=== PATIENT | male | born 1985 | race Two or more races ===

== ENCOUNTER 2025-04-27 22:56 | Inpatient (IN) | payer BC, SELFPAY ==
[2025-04-27 22:57] VITALS: BMI 28.0
--- NOTE | 2025-04-27 23:10 | PD.EDADULT ---
ED General RME/HPI General Chief complaint: Nausea/Vomiting/Diarrhea Stated complaint: BODYACHES, DIZZINES, N/V Time Seen by Provider: 04/27/25 22:59 Arrival date/time: 04/27/25 22:56 RME / HPI RME / HPI narrative: see MDM Related Data Previous Rx's ?Medication ?Instructions ?Recorded Hydrocodone/Acetaminophen * (NORCO 1 tab PO Q6H PRN 15 #15 tabs 11/14/16 5/325 *) Allergies Allergy/AdvReac Type Severity Reaction Status Date / Time No Known Allergies Allergy Verified 04/27/25 22:59 Review of Systems Review of Systems Systems Reviewed: All systems reviewed, normal except as documented ED Exam Narrative Physical exam: GENERAL: NAD, AAOx3 HEENT: dry mucosa. Eyes open, symmetrical, & clear CARDIO: Heart RRR, no obvious murmurs PULM: No noted coughing/dyspnea CTA B/L, no R/W/R GI: Abdomen soft, nondistended, mild pain on palpation in right lower quadrant. BSx4 SKIN/MSK/EXT: No wounds/rashes/edema/amputations, no pain on palpation. Pedal pulses present B/L NEURO: AAOx3, no focal neuro deficits, able to move all 4 extremities Course Quality Measures none Orders Category Date Time Status EKG (ED ONLY) *Do not use* NOW Care 04/27/25 23:43 Completed Insert IV NOW Care 04/27/25 23:41 Active CXRP [XR chest 1V portable] Stat Exams 04/27/25 23:47 Taken EKG (ED Only) Stat Exams 04/27/25 23:43 Draft A1C [Glycohemoglobin w (eAG)] Stat Lab 04/27/25 23:43 Received Beta Hydroxybutyrate Stat Lab 04/27/25 23:42 Completed CBC Stat Lab 04/27/25 23:42 Completed CMP [Comprehensive Metabolic Panel] Stat Lab 04/27/25 23:42 Completed Lactic Acid [Lactate (Lactic Acid)] Stat Lab 04/27/25 23:46 Results UA [Urinalysis] Stat Lab 04/27/25 23:58 Completed VBG [Venous Blood Gas] Stat Lab 04/27/25 23:42 Completed Ringers Lactated 1000 ml [Lactated Ringers] 1,000 ml Med 04/28/25 01:30 Discontinued IV 999 mls/hr Sodium Chloride 0.9% 1000 ml [Ns] 1,000 ml Med 04/28/25 00:04 Discontinued IV 999 mls/hr Vital Signs Vital signs: Vital Signs Temperature 99.1 F 04/27/25 23:15 Pulse Rate 116 H 04/27/25 23:15 Respiratory Rate 16 04/27/25 23:15 Blood Pressure 141/104 H 04/27/25 23:15 Pulse Oximetry (%) 97 04/27/25 23:15 Oxygen Delivery Method Room Air 04/27/25 23:15 Discharge Plan Plan Patient Disposition: Admit Acute Care w/in Hospital Problem List Clinical Impression: DKA (diabetic ketoacidosis) MDM Narrative MDM hospital course: 39 y/o M with no pmhx who presented to the ED due to vomiting. He describes 2 episodes of vomiting mostly food contents. Patient states that he went to a clinic and found that his blood sugars were in the high 300s and urinalysis showing glucose and ketones but has not had a formal diagnosis of diabetes. He states that he has been feeling weak with nausea and vomiting for the last week as well as some mild abdominal pain rated 2-4 out of 10. He does state that his mother is a type I diabetic. He also states that he is currently unable to hold anything down since this am where he tried to eat breakfast and then started vomiting. At this time he denies fever chills, shortness of breath, chest pain, palpitations recent travel, sick contacts. 2346 CBC, CMP, VBG, BHB, lactic acid ordered 0003 Labs reviewed had lactic acid elevated, anion gap open, blood sugars in the 380s, BHB 5.3 As patient has new onset diabetes likely in DKA considering his nausea vomiting abdominal pain unable to tolerate p.o. intake, high blood sugars and increased anion gap 0140 Spoke to ICU team who will accept the patient for admission Clinical Information Provided by patient Medical Records Reviewed None Lab Interpretation Labs: interpreted by me Lab(s) interpretation(s): Diabetic ketoacidosis, lactic acidosis, elevated beta hydroxybutyrate Medication Administration(s) Medication Administration History Dextrose (Dextrose 50%-Water Inj 50 Ml Syringe) 25 ml IV PRNMRX1 PRN PRN Reason: Blood Sugar - Low Enoxaparin Sodium (Enoxaparin Sod Inj 40 Mg/0.4 Ml Syringe) 40 mg SC QDAY JAYNE Stop: 05/12/25 08:59 Lactated Ringer's (Lactated Ringers) 1,000 mls @ 999 mls/hr IV .Q1H1M ONE Stop: 04/28/25 02:51 Last Admin: 04/28/25 02:20 Dose: 999 mls/hr Documented By: DT Lactated Ringer's (Lactated Ringers) 1,000 mls @ 999 mls/hr IV .Q1H1M ONE Stop: 04/28/25 02:52 Last Admin: 04/28/25 02:21 Dose: 999 mls/hr Documented By: DT Potassium Chloride (Kcl Ivpb) 10 meq in 100 mls @ 100 mls/hr IV .Q1H PRN PRN Reason: IF POTASSIUM LESS THAN 3.3 Stop: 05/28/25 01:51 Magnesium Sulfate (Magnesium Sulfate Ivpb) 2 gm in 50 mls @ 25 mls/hr IV .Q2H PRN PRN Reason: PER DKA PROTOCOL Stop: 05/28/25 01:51 Insulin Human Regular 100 unit (/ IV Miscellaneous Supplies) 100 mls @ 8.618 mls/hr IV .[id number] PRN; Protocol PRN Reason: PER PROTOCOL Stop: 05/28/25 01:51 Dextrose/Lactated Ringer's (D5-Lr) 1,000 mls @ 250 mls/hr IV .Q4H PRN PRN Reason: PER PROTOCOL Stop: 05/28/25 01:51 Lactated Ringer's (Lactated Ringers) 1,000 mls @ 250 mls/hr IV .Q4H PRN PRN Reason: PER PROTOCOL Stop: 04/29/25 01:51 Last Admin: 04/28/25 02:34 Dose: 250 mls/hr Documented By: DT Potassium Chloride 20 meq/ (Lactated Ringer's) 1,010 mls @ 250 mls/hr IV .Q4H3M PRN PRN Reason: K LEVEL 3.3 TO 5.3mM/L Stop: 05/28/25 01:51 Potassium Chloride 40 meq/ (Lactated Ringer's) 1,020 mls @ 250 mls/hr IV .Q4H5M PRN PRN Reason: K LEVEL < 3.3 mM/L Stop: 05/28/25 01:51 Potassium Chloride 40 meq/ (Dextrose/Lactated Ringer's) 1,020 mls @ 250 mls/hr IV .Q4H5M PRN PRN Reason: K LEVEL < 3.3mM/L Stop: 05/28/25 01:51 Potassium Cl/Dextrose/Lact Ringer's (Kcl 20 Meq/L In D5-Lr) 20 meq in 1,000 mls @ 250 mls/hr IV .Q4H PRN PRN Reason: K LEVEL 3.3 TO 5.3 mM/L Stop: 05/28/25 01:51 Potassium Chloride (Kcl Ivpb) 10 meq in 100 mls @ 50 mls/hr IV PRN PRN PRN Reason: K LEVEL 3.3 to 5.3 & BG > 200 Stop: 05/28/25 01:51 Last Admin: 04/28/25 02:34 Dose: 50 mls/hr Documented By: ANEL Potassium Phosphate (Pot Phos 15 Mmol In Ns 250 Ml) 15 mmol in 250 mls @ 62.5 mls/hr IV PRN PRN PRN Reason: Phosphate <= 1mg/dL Stop: 05/28/25 01:51 Sodium Phosphate 15 mmol/ (Sodium Chloride) 255 mls @ 62.5 mls/hr IV .Q4H5M PRN PRN Reason: Phosphate <= 1mg/dL and K> than 5.3 Stop: 05/28/25 01:51 Sodium Bicarbonate (Sodium Bicarb Inj 8.4% Syr 50 Ml Syringe) 50 ml IV Q4HR PRN PRN Reason: For ph <= to 7.0 Stop: 05/28/25 01:51 Discontinued Medications Sodium Chloride (Ns) 1,000 mls @ 999 mls/hr IV .Q1H1M ONE Stop: 04/28/25 01:04 Last Infusion: 04/28/25 01:17 Dose: Infused Documented By: Admin: 04/28/25 00:11 Dose: 999 mls/hr Documented By: ANEL Lactated Ringer's (Lactated Ringers) 1,000 mls @ 999 mls/hr IV .Q1H1M ONE Stop: 04/28/25 02:30 Last Admin: 04/28/25 01:40 Dose: 999 mls/hr Documented By: JENNIFER Diagnosis Differential diagnosis: Diabetic ketoacidosis, lactic acidosis, sepsis Most likely dx, and/or detailed dx discussion: Diabetic ketoacidosis Dispositon Disposition: Admit
[2025-04-27 23:15] VITALS: BP 140/111; BP 141/104; PULSE 116; RESP 16; TEMP 37.3; O2SAT 97
--- NOTE | 2025-04-27 23:43 | EKG_ITS ---
[facility] Test Date: 2025-04-27 Pat Name: MAURICE GU Department: Room: - Gender: Male [employer] Teacher: : 1985 Requested By: Arturo García Order Number: [id number] Reading MD: Arturo García Measurements Intervals Vest Rate: 111 P: 44 ND: 112 QRS: 15 QRSD: 86 T: 64 QT: 311 QTc: 424 Interpretive Statements SINUS TACHYCARDIA WITH SHORT ND INTERVAL NONSPECIFIC T-WAVE ABNORMALITY ABNORMAL RHYTHM ECG No previous ECG available for comparison /store/S0/[id number]/ecg/[id number].pdf
--- NOTE | 2025-04-27 23:47 | XR_ITS ---
Examination: AP chest single view Technique one AP portable upright chest single view. Date and time: April 28, 2025, 0007 hours INDICATION: Chest pain today. FINDINGS: Normal heart size. The lungs are clear. The osseous structures are intact. IMPRESSION: No active disease.
[2025-04-28] VITALS (18 sets, daily range): BP systolic 113–150; BP diastolic 79–109; PULSE 67–110; RESP 12–23; TEMP 36.2–37.1; O2SAT 96–100; BMI 29.5
[2025-04-28 00:02] LABS: Collection Type, Urine Clean Catch; Squamous Epithelial Cell,Urine 0 /hpf (0-5)
[2025-04-28 00:10] LABS: Bilirubin,Urine Negative (Negative); Blood,Urine Negative (Negative); Clarity,Urine Clear (Clear/Hazy); Color,Urine Lt-Yellow (Lt Yel-Yel); Glucose, Urine 4+ (Negative); Hyaline Casts,Urine 3 /hpf (0-1); Ketones,Urine 4+ (Negative); Leukocyte Esterase,Urine Negative (Negative); Nitrite,Urine Negative (Negative); PH,Urine 5.5 (5.0-7.0); Protein,Urine 1+ (Neg - Trace); RBC,Urine 2 /hpf (0-3); Specific Gravity,Urine 1.036 (1.001-1.035); Urobilinogen,Urine 2.0 mg/dL (0.0-1.0); WBC,Urine 2 /hpf (0-5)
[2025-04-28] MEDS: SODIUM CHLORIDE 0.9% 1000 ML 1,000 ML 999 ML IV (00:11)
[2025-04-28 00:15] LABS: Lactate (Lactic Acid) 2.2 mMol/L (0.4-2.0)
[2025-04-28 00:16] LABS: Base Excess, Venous -10 (-3-3); O2 Saturation, Venous 88 % (96-97); PCO2, Venous 33 mmHg (36-56); PO2, Venous 55 mmHg (15-58); pH, Venous 7.29 (7.33-7.66)
[2025-04-28 00:17] LABS: Basophils # (Auto) 0.1 Thou/mm3 (0.0-0.2); Basophils % (Auto) 1 % (0-2.5); Eosinophils # (Auto) 0.1 Thou/mm3 (0.0-0.5); Eosinophils % (Auto) 1 % (0-10); Hematocrit 45.9 % (41.0-53.0); Hemoglobin 16.3 g/dL (13.5-16.0); Immature Granulocytes Auto 0.05 Thou/mm3 (0.00-0.00); Lymphocytes # (Auto) 2.3 Thou/mm3 (1.0-4.8); Lymphocytes % (Auto) 25 % (10-50); Mean Corpuscular HGB Conc 35.5 g/dl (31.0-37.0); Mean Corpuscular Hemoglobin 31.0 pg (25.0-35.0); Mean Corpuscular Volume 87 fL (80-100); Monocytes # (Auto) 0.7 Thou/mm3 (0.0-0.8); Monocytes % (Auto) 7 % (0-12); Neutrophils # (Auto) 6.0 Thou/mm3 (1.8-7.7); Neutrophils % (Auto) 65 % (37-80); Nucleated Red Blood Cell # 0.00 Thou/mm3 (0.00-0.00); Nucleated Red Blood Cell % 0 /100 WBC (0); Platelet Count 229 Thou/mm3 (140-440); RDW Standard Deviation 37.3 fL (35.1-43.9); Red Blood Count 5.26 Miln/mm3 (4.50-5.90); White Blood Count 9.2 Thou/mm3 (3.8-10.6)
[2025-04-28 00:29] LABS: Beta Hydroxybutyrate 5.3 mmol/L (<0.6)
[2025-04-28 01:25] LABS: Alanine Aminotransferase 74 U/L (10-49); Albumin, Serum 4.7 gm/dL (3.5-5.0); Albumin/Globulin Ratio 1.7 (1.2-2.2); Alkaline Phosphatase 95 U/L (46-116); Anion Gap 21 (7-16); Aspartate Amino Transferase 36 U/L (0-34); BUN/Creatinine Ratio 13 Ratio (12-20); Bilirubin,Total 0.5 mg/dL (0.3-1.2); Blood Urea Nitrogen 19 mg/dL (9-23); Calcium 9.8 mg/dL (8.3-10.6); Calcium (Corrected) 9.8 mg/dL (8.5-10.1); Chloride 98 mMol/L (98-107); Creatinine (Component) 1.5 mg/dL (0.6-1.3); Estimated Creatinine Clearance 70.5 mL/min (>60); Globulin 2.8 gm/dL (2.3-3.5); Glucose 391 mg/dL (74-106); Osmolality,Calculated 284 (275-295); Potassium 4.0 mMol/L (3.4-5.1); Sodium 133 mMol/L (136-145); Total Protein 7.5 gm/dL (5.7-8.2); eGFR 60 See Note
[2025-04-28 01:29] LABS: Carbon Dioxide 14.4 mMol/L (20.0-31.0)
[2025-04-28] MEDS: RINGERS LACTATED 1000 ML 1,000 ML 999 ML IV ×3 (01:40→02:21)
[2025-04-28 02:29] LABS: Magnesium 1.9 mg/dL (1.6-2.6); Phosphorous 4.7 mg/dL (2.4-5.1)
[2025-04-28] MEDS: RINGERS LACTATED 1000 ML 1,000 ML 250 ML IV (02:34)
[2025-04-28] MEDS: POTASSIUM CHL 10 mEq IVPB 10 MEQ/100 ML BAG 50 MEQ IV ×3 (02:34→06:28)
[2025-04-28] MEDS: INSULIN REG 100 UNITS/100 ML 100 UNIT in PRE-MIXED 1 BAG 8.618 UNIT IV (02:39)
[2025-04-28 03:09] LABS: Reflex Lactate? Y
[2025-04-28 03:12] LABS: Lactic Acid, 3 HR 2.0 mMol/L (0.4-2.0)
[2025-04-28 03:47] LABS: Glucose Estimated Average 272 mg/dL (80-131); Hemoglobin A1C 11.1 % Hgb (4.8-6.0)
[2025-04-28] MEDS: DEXTROSE 5%-LACTATED RINGERS 1,000 ML 250 ML IV (04:50)
--- NOTE | 2025-04-28 04:54 | ESHP_ITS ---
<Statement entered by Jeffrey Bruno MD - 04/28/25 06:55> I Jeffrey Bruno MD reviewed the note and agree with the resident's assessment & plan with exceptions as below. I have personally reviewed labs, imaging, home meds/prior records, examined the patient, formulated and discussed management plan with the IM team. A 39-year-old male with recent diagnosis of diabetes mellitus presented to ED with generalized fatigue, tiredness and overall not feeling well noted to be in DKA along with LOPEZ. Received initial IV fluid resuscitation in the ED, administer NS 2 L bolus followed by maintenance IVF with NS at 150 mL an hour. Started on insulin gtt. as per DKA protocol with renal panel and electrolyte replacement. Will start on p.o. diet once the gap closes and will switch to basal and preprandial insulin. Documentation for date of: 04/28/25 HPI History of Present Illness Chief complaint: nausea and vomiting History of present illness: Patient is 39 years old male with past medical history of hypertension and recently diagnosed type 2 diabetes mellitus presented to the ED complaining of nausea and vomiting. He reports he was seen in outpatient clinic yesterday and was started on metformin twice daily for newly diagnosed type 2 diabetes mellitus. He reported that for the last week he was feeling nauseous and was not feeling well. Today patient woke up and started vomiting after breakfast prompting him coming to the ED. He denies any fever, chills, chest pain, abdominal pain. He also denies any diarrhea or constipations. He is taking amlodipine for hypertension. In the ED on admission blood pressure 141/104, pulse 116, respirations 16, temperature 99.1 ?F, oxygen saturation 97% on room air. Labs showed hemoglobin 16.3, sodium 133, potassium 4, carbon dioxide 14.4, anion gap 21, creatinine 1.5, glucose 391, hemoglobin A1c 11.1%, lactic acid 2.2, AST 36, ALT 74, BHB 5.3. Urinalysis showed 4+ urine and ketones and 1+ protein. VBG showed pH 7.29, PCO2 33, PO2 55. EKG showed sinus tachycardia. Chest x-ray was unremarkable. He was given 2 L of IVF in the ED and was admitted to ICU for management of DKA. PMH: hypertension and recently diagnosed type 2 diabetes mellitus. PSH: Hand surgery. SH: Drinks alcohol 3 times a week 6-12 beers at the time. Uses cocaine 2 times a week. Denies smoking tobacco or using other illicit drugs. FH: Mother and father have diabetes type 1. Allergies: NKA. Medications: Metformin, amlodipine. Review of Systems Review of Systems Systems Reviewed: All systems reviewed, normal except as documented Exam Vital Signs Temp Pulse Resp BP Pulse Ox O2 Del Method 98.6 F 76 20 141/109 H 100 Room Air 04/28/25 02:00 04/28/25 02:00 04/28/25 02:00 04/28/25 02:00 04/28/25 02:00 04/28/25 02:00 Narrative Exam Gen: Well-developed and well-nourished. HEENT: NCAT, PERRLA, EOMI, MMM, anicteric conjunctivae. CVS: normal S1 and S2. RRR. No M/R/G. Resp: CTA B/L. No rhonchi, rales, crackles or wheezing. Abd: soft, non-tender, non-distended. BS+ in all 4 quadrants. MSK: Good ROM in BUE & BLE. No edema or rash. Neuro: CN II-XII grossly intact. Strength 5/5 in BUE & BLE. Alert and oriented x3. Psych: appropriate mood and affect. Results: Labs 04/28/25 00:03 04/28/25 00:03 Labs: Short CBC 04/28/25 Range/Units 00:03 WBC 9.2 (3.8-10.6) Thou/mm3 Hgb 16.3 H (13.5-16.0) g/dL Hct 45.9 (41.0-53.0) % Plt Count 229 (140-440) Thou/mm3 BMP 04/28/25 00:03 Sodium 133 L Potassium 4.0 Chloride 98 Carbon Dioxide 14.4 L* BUN 19 Creatinine 1.5 H Glucose 391 H Calcium 9.8 Liver Function 04/28/25 Range/Units 00:03 Total Bilirubin 0.5 (0.3-1.2) mg/dL AST 36 H (0-34) U/L ALT 74 H (10-49) U/L Alkaline Phosphatase 95 (46-116) U/L Albumin 4.7 (3.5-5.0) gm/dL Urine 04/27/25 Range/Units 23:58 Urine Color Lt-Yellow (Lt Yel-Yel) Urine Clarity Clear (Clear/Hazy) Urine pH 5.5 (5.0-7.0) Ur Specific [place] 1.036 H (1.001-1.035) Urine Protein 1+ A (Neg - Trace) Urine Glucose (UA) 4+ A (Negative) ABG Interpretation ABG results: 04/28/25 00:03 VBG pH 7.29 L VBG pCO2 33 L VBG pO2 55 VBG Base Excess -10 L Quality Measures Quality Measures VTE prophylaxis Medications Home Medications and Allergies Allergies Allergy/AdvReac Type Severity Reaction Status Date / Time No Known Allergies Allergy Verified 04/27/25 22:59 Visit Medications Dextrose (Dextrose 50%-Water Inj 50 Ml Syringe) 25 ml IV PRNMRX1 PRN PRN Reason: Blood Sugar - Low Enoxaparin Sodium (Enoxaparin Sod Inj 40 Mg/0.4 Ml Syringe) 40 mg SC QDAY [facility] Stop: 05/12/25 08:59 Potassium Chloride (Kcl Ivpb) 10 meq in 100 mls @ 100 mls/hr IV .Q1H PRN PRN Reason: IF POTASSIUM LESS THAN 3.3 Stop: 05/28/25 01:51 Magnesium Sulfate (Magnesium Sulfate Ivpb) 2 gm in 50 mls @ 25 mls/hr IV .Q2H PRN PRN Reason: PER DKA PROTOCOL Stop: 05/28/25 01:51 Insulin Human Regular 100 unit (/ IV Miscellaneous Supplies) 100 mls @ 8.618 mls/hr IV .[id number] PRN; Protocol PRN Reason: PER PROTOCOL Stop: 05/28/25 01:51 Last Titration: 04/28/25 03:44 Dose: 0.1 unit/kg/hr, 8.6 mls/hr Dextrose/Lactated Ringer's (D5-Lr) 1,000 mls @ 250 mls/hr IV .Q4H PRN PRN Reason: PER PROTOCOL Stop: 05/28/25 01:51 Lactated Ringer's (Lactated Ringers) 1,000 mls @ 250 mls/hr IV .Q4H PRN PRN Reason: PER PROTOCOL Stop: 04/29/25 01:51 Last Admin: 04/28/25 02:34 Dose: 250 mls/hr Potassium Chloride 20 meq/ (Lactated Ringer's) 1,010 mls @ 250 mls/hr IV .Q4H3M PRN PRN Reason: K LEVEL 3.3 TO 5.3mM/L Stop: 05/28/25 01:51 Potassium Chloride 40 meq/ (Lactated Ringer's) 1,020 mls @ 250 mls/hr IV .Q4H5M PRN PRN Reason: K LEVEL < 3.3 mM/L Stop: 05/28/25 01:51 Potassium Chloride 40 meq/ (Dextrose/Lactated Ringer's) 1,020 mls @ 250 mls/hr IV .Q4H5M PRN PRN Reason: K LEVEL < 3.3mM/L Stop: 05/28/25 01:51 Potassium Cl/Dextrose/Lact Ringer's (Kcl 20 Meq/L In D5-Lr) 20 meq in 1,000 mls @ 250 mls/hr IV .Q4H PRN PRN Reason: K LEVEL 3.3 TO 5.3 mM/L Stop: 05/28/25 01:51 Potassium Chloride (Kcl Ivpb) 10 meq in 100 mls @ 50 mls/hr IV PRN PRN PRN Reason: K LEVEL 3.3 to 5.3 & BG > 200 Stop: 05/28/25 01:51 Last Admin: 04/28/25 04:38 Dose: 50 mls/hr Potassium Phosphate (Pot Phos 15 Mmol In Ns 250 Ml) 15 mmol in 250 mls @ 62.5 mls/hr IV PRN PRN PRN Reason: Phosphate <= 1mg/dL Stop: 05/28/25 01:51 Sodium Phosphate 15 mmol/ (Sodium Chloride) 255 mls @ 62.5 mls/hr IV .Q4H5M PRN PRN Reason: Phosphate <= 1mg/dL and K> than 5.3 Stop: 05/28/25 01:51 Sodium Bicarbonate (Sodium Bicarb Inj 8.4% Syr 50 Ml Syringe) 50 ml IV Q4HR PRN PRN Reason: For ph <= to 7.0 Stop: 05/28/25 01:51 Discontinued Medications Sodium Chloride (Ns) 1,000 mls @ 999 mls/hr IV .Q1H1M ONE Stop: 04/28/25 01:04 Last Infusion: 04/28/25 01:17 Dose: Infused Lactated Ringer's (Lactated Ringers) 1,000 mls @ 999 mls/hr IV .Q1H1M ONE Stop: 04/28/25 02:30 Last Infusion: 04/28/25 02:52 Dose: Infused Lactated Ringer's (Lactated Ringers) 1,000 mls @ 999 mls/hr IV .Q1H1M ONE Stop: 04/28/25 02:51 Last Infusion: 04/28/25 03:30 Dose: Infused Lactated Ringer's (Lactated Ringers) 1,000 mls @ 999 mls/hr IV .Q1H1M ONE Stop: 04/28/25 02:52 Last Infusion: 04/28/25 03:30 Dose: Infused Assessment & Plan Plan Patient is 39 years old male with past medical history of hypertension and recently diagnosed type 2 diabetes mellitus presented to the ED complaining of nausea and vomiting and was admitted to ICU for management of DKA. Neuro: No active problem. Cardiovascular: #History of hypertension. Resume home amlodipine once p.o. Respiratory: No active problem. Gastrointestinal: #Nausea and vomiting, resolved. Likely due to DKA, resolved at the time of admission. Renal: #HAGMA. #Lactic acidosis. #LOPEZ. Labs showed carbon dioxide 14.4, anion gap 21, creatinine 1.5, hemoglobin A1c 11.1%, lactic acid 2.2, BHB 5.3. Baseline creatinine around 1. Patient was given 2 L of IVF in the ED. Lactic acidosis due to severe dehydration vs recently started metformin. VBG showed pH 7.29, PCO2 33, PO2 55. Plan: - Given additional 2 L of LR. - Continue DKA protocol with fluid resuscitation. - Strict DORIE. - Avoid nephrotoxic agents. Endocrine: #DKA. #Newly diagnosed type 2 diabetes mellitus. Patient was diagnosed with type 2 diabetes mellitus day prior to admission, was started on metformin twice daily. Labs showed anion gap 21, hemoglobin A1c 11.1%, BHB 5.3. Plan: - Patient started on DKA protocol with insulin drip and IVF. - Replete electrolytes per DKA protocol. Infectious Disease: No active problem. Hematology/Oncology: No active problem. Diet: NPO. DVT prophylaxis: Lovenox. GI prophylaxis: None. Code status: Full code. Disposition: ICU for DKA. Plan of care discussed with attending Dr. Bruno. Arthur Luna MD, PGY 3. Disclaimer: This note was dictated by speech recognition. Minor errors in lease purchase driver may be present due to voice recognition software.
[2025-04-28 06:40] LABS: Lactate (Lactic Acid) 1.2 mMol/L (0.4-2.0)
[2025-04-28 06:44] LABS: Basophils # (Auto) 0.1 Thou/mm3 (0.0-0.2); Basophils % (Auto) 1 % (0-2.5); Eosinophils # (Auto) 0.1 Thou/mm3 (0.0-0.5); Eosinophils % (Auto) 2 % (0-10); Hematocrit 36.7 % (41.0-53.0); Hemoglobin 13.0 g/dL (13.5-16.0); Immature Granulocytes Auto 0.04 Thou/mm3 (0.00-0.00); Lymphocytes # (Auto) 2.8 Thou/mm3 (1.0-4.8); Lymphocytes % (Auto) 34 % (10-50); Mean Corpuscular HGB Conc 35.4 g/dl (31.0-37.0); Mean Corpuscular Hemoglobin 31.0 pg (25.0-35.0); Mean Corpuscular Volume 88 fL (80-100); Monocytes # (Auto) 0.7 Thou/mm3 (0.0-0.8); Monocytes % (Auto) 9 % (0-12); Neutrophils # (Auto) 4.5 Thou/mm3 (1.8-7.7); Neutrophils % (Auto) 55 % (37-80); Nucleated Red Blood Cell # 0.00 Thou/mm3 (0.00-0.00); Nucleated Red Blood Cell % 0 /100 WBC (0); Platelet Count 166 Thou/mm3 (140-440); RDW Standard Deviation 37.2 fL (35.1-43.9); Red Blood Count 4.19 Miln/mm3 (4.50-5.90); White Blood Count 8.2 Thou/mm3 (3.8-10.6)
[2025-04-28 07:18] LABS: Alanine Aminotransferase 49 U/L (10-49); Albumin, Serum 3.4 gm/dL (3.5-5.0); Albumin/Globulin Ratio 1.6 (1.2-2.2); Alkaline Phosphatase 63 U/L (46-116); Anion Gap 10 (7-16); Aspartate Amino Transferase 23 U/L (0-34); BUN/Creatinine Ratio 12 Ratio (12-20); Bilirubin,Total 0.5 mg/dL (0.3-1.2); Blood Urea Nitrogen 12 mg/dL (9-23); Calcium 8.4 mg/dL (8.3-10.6); Calcium (Corrected) 8.9 mg/dL (8.5-10.1); Carbon Dioxide 19.3 mMol/L (20.0-31.0); Cardiac Risk Estimate 6.7 RATIO (4.0-6.7); Chloride 106 mMol/L (98-107); Cholesterol 220 mg/dL (132-200); Creatinine (Component) 1.0 mg/dL (0.6-1.3); Estimated Creatinine Clearance 108.1 mL/min (>60); Globulin 2.1 gm/dL (2.3-3.5); Glucose 173 mg/dL (74-106); HDL Cholesterol 33 mg/dL (40-60); LDL Cholesterol,Calculated 163 mg/dL (0-130); Magnesium 1.6 mg/dL (1.6-2.6); Osmolality,Calculated 273 (275-295); Phosphorous 2.9 mg/dL (2.4-5.1); Potassium 3.4 mMol/L (3.4-5.1); Sodium 135 mMol/L (136-145); Total Protein 5.5 gm/dL (5.7-8.2); Triglycerides 122 mg/dL (30-150); eGFR > 60 See Note
[2025-04-28] MEDS: ENOXAPARIN SOD INJ 40 MG/0.4 ML SYRINGE SC (09:05)
[2025-04-28] MEDS: KCL 20 mEq/L in D5-LR 20 MEQ/1,000 ML BAG 250 MEQ IV (09:05)
[2025-04-28 10:37] LABS: Lactate (Lactic Acid) 1.4 mMol/L (0.4-2.0)
[2025-04-28 11:01] LABS: Albumin, Serum 3.4 gm/dL (3.5-5.0); Anion Gap 9 (7-16); BUN/Creatinine Ratio 11 Ratio (12-20); Blood Urea Nitrogen 10 mg/dL (9-23); Calcium 8.2 mg/dL (8.3-10.6); Calcium (Corrected) 8.7 mg/dL (8.5-10.1); Carbon Dioxide 23.4 mMol/L (20.0-31.0); Chloride 105 mMol/L (98-107); Creatinine (Component) 0.9 mg/dL (0.6-1.3); Estimated Creatinine Clearance 118.0 mL/min (>60); Glucose 154 mg/dL (74-106); Magnesium 1.6 mg/dL (1.6-2.6); Osmolality,Calculated 275 (275-295); Phosphorous 3.4 mg/dL (2.4-5.1); Potassium 3.2 mMol/L (3.4-5.1); Sodium 137 mMol/L (136-145); eGFR > 60 See Note
[2025-04-28] MEDS: INSULIN GLARGINE (Lantus) 5 UNIT/0.05 ML (PER 5 UNITS) 25 UNIT SC (12:00)
--- NOTE | 2025-04-28 12:58 | ESPR_ITS ---
<Statement entered by Sabine Conde MD - 04/29/25 16:16> Patient was seen and examined at bedside. I agree on the assessment and plan on this note. At this time we are not sure of type of his diabetes. will require insulin, C-peptide evaluation as an outpatient. Patient has hypertension, HLD, BMI of 29, and new diagnosis of DM which put him at risk for cardiovascular complications. He has strong family hx of DM in both parents. At this time patient will be downgraded to the floor team for further management. - Patient's plan and care discussed with my attending, Dr. Jeffery Conde MD Internal Medicine PGY-3 <Statement entered by Adolfo Marina MD - 04/28/25 17:45> Patient was seen and examined at bedside. I agree on the assessment and plan on this note as documented by resident Bronson Elizabeth PGY1. Mr Krishnan is a 39-year-old male with past medical history of hypertension, patient was recently diagnosed with diabetes outpatient by primary care physician was started on metformin. After initiation of therapy patient presented to the ED with a chief complaint of nausea and vomiting in the ED patient was noted to have elevated anion gap, elevated beta hydroxybutyrate and patient was admitted to the ICU for management of diabetic ketoacidosis. Patient started on DKA protocol, in the morning patient's anion gap improved, closed x 2. Patient alert and oriented x 3 on bedside examination, patient started on diet, tolerated diet well. Patient's was given 25 units of Lantus subcutaneous x 1 insulin drip discontinued after, patient started on 6 units of lispro 3 times daily along with sliding scale for correction. Patient noted to have significant hyperlipidemia and hypercholesterolemia, started on atorvastatin 40 mg at bedtime, also noted mild transaminitis on presentation, per chart review patient did have transaminitis in the past as well, we will obtain hepatitis panel however there is high suspicion of underlying MASLD. Of note patient has history of cocaine use, referral made to social work assistant. Patient stable to be downgraded to med/tele signout given to the hospitalist team. Hospitalist team to resume care. Case discussed with attending Dr. Gil and senior Resident Dr Conde PGY3 Adolfo Marina MD PGY-2 Documentation for date of: 04/28/25 Subjective Subjective Interval history: Chief complaint: nausea and vomiting History of present illness: Patient is 39 years old male with past medical history of hypertension and recently diagnosed type 2 diabetes mellitus presented to the ED complaining of nausea and vomiting. He reports he was seen in outpatient clinic yesterday and was started on metformin twice daily for newly diagnosed type 2 diabetes mellitus. He reported that for the last week he was feeling nauseous and was not feeling well. Today patient woke up and started vomiting after breakfast prompting him coming to the ED. He denies any fever, chills, chest pain, abdominal pain. He also denies any diarrhea or constipations. He is taking amlodipine for hypertension. In the ED on admission blood pressure 141/104, pulse 116, respirations 16, temperature 99.1 ?F, oxygen saturation 97% on room air. Labs showed hemoglobin 16.3, sodium 133, potassium 4, carbon dioxide 14.4, anion gap 21, creatinine 1.5, glucose 391, hemoglobin A1c 11.1%, lactic acid 2.2, AST 36, ALT 74, BHB 5.3. Urinalysis showed 4+ urine and ketones and 1+ protein. VBG showed pH 7.29, PCO2 33, PO2 55. EKG showed sinus tachycardia. Chest x-ray was unremarkable. He was given 2 L of IVF in the ED and was admitted to ICU for management of DKA. PMH: hypertension and recently diagnosed type 2 diabetes mellitus. PSH: Hand surgery. SH: Drinks alcohol 3 times a week 6-12 beers at the time. Uses cocaine 2 times a week. Denies smoking tobacco or using other illicit drugs. FH: Mother and father have diabetes type 1. Allergies: NKA. Medications: Metformin, amlodipine. 04/28/2025 Patient seen and examined at bedside, admitted overnight for DKA. He is alert and oriented x 3. Discussed with the patient his new diagnosis of type 2 diabetes, was recently diagnosed by primary care physician and started on metformin. Discussed the patient's family history of type 1 diabetes in his mother and father. Patient's nausea and vomiting has resolved, currently has no complaints. The patient's anion gap metabolic acidosis has improved from 21 to 10. VBG pH is 7.29 which is expected to improve. Fingerstick glucose this morning was 173. Patient's anion gap closed twice, started on carb consistent low diet, patient tolerated diet well, reports no nausea vomiting, patient is transitioned to subcutaneous insulin and insulin drip is discontinued. The patient has hypercholesterolemia, therefore a statin will be started. Mild transaminitis was noted, hepatitis panel was ordered, patient likely has metabolic dysfunction associated steatotic liver disease. Stable for downgrade. Signed out to hospital team. Hospitalist team will resume care. Exam Vital Signs Temp Pulse Resp BP Pulse Ox O2 Del Method 97.6 F 70 17 126/97 H 98 Room Air 04/28/25 08:00 04/28/25 11:01 04/28/25 11:01 04/28/25 11:01 04/28/25 11:01 04/28/25 11:01 Narrative Exam Physical Exam: o??? General: Awake and in no acute distress. Conversational and non-toxic appearing. Overweight. o??? Neurologic: GCS 15. Alert and oriented x3, no gross neurological deficit, and patient able to move all 4 extremities. o??? HEENT: Normocephalic, atraumatic, mucous membranes moist. Pupils reactive to light. o??? Heart: Regular rate and rhythm, normal S1 and S2, no murmurs. o??? Lungs: Clear to auscultation bilaterally with no wheezing or crackles. o??? Abdomen: Soft, nondistended, nontender. No guarding or rebound tenderness. o??? Extremities: No edema. 2+ radial and dorsalis pedis pulses bilaterally. o??? Skin: Warm. Dry. No rash or ecchymoses. Objective Labs 04/29/25 04:33 04/29/25 04:33 Labs: Laboratory Results - last 24 hr 04/27/25 04/28/25 04/28/25 23:58 00:03 02:17 WBC 9.2 RBC 5.26 Hgb 16.3 H Hct 45.9 MCV 87 MCH 31.0 MCHC 35.5 RDW Std Deviation 37.3 Plt Count 229 Neut % (Auto) 65 Lymph % (Auto) 25 [place] % (Auto) 7 Eos % (Auto) 1 Baso % (Auto) 1 Neut # (Auto) 6.0 Lymph # (Auto) 2.3 [place] # (Auto) 0.7 Eos # (Auto) 0.1 Baso # (Auto) 0.1 Immature Gran # (Auto) 0.05 H Absolute Nucleated RBC 0.00 Immature Gran % 1 H Nucleated RBC % 0 VBG pH 7.29 L VBG pCO2 33 L VBG pO2 55 VBG O2 Sat (Juan) 88 L VBG Base Excess -10 L Sodium 133 L Potassium 4.0 Chloride 98 Carbon Dioxide 14.4 L* Anion Gap 21 H BUN 19 Creatinine 1.5 H Estim Creat Clear Calc 70.5 eGFR 60 BUN/Creatinine Ratio 13 [address]ucose [address] Glu mg/dL 272 H Hemoglobin A1c 11.1 H Calculated Osmolality 284 Lactic Acid 2.2 H 2.0 Calcium 9.8 Corrected Calcium 9.8 Phosphorus 4.7 Magnesium 1.9 Total Bilirubin 0.5 AST 36 H ALT 74 H Alkaline Phosphatase 95 Total Protein 7.5 Albumin 4.7 Globulin 2.8 Albumin/Globulin Ratio 1.7 Triglycerides Cholesterol LDL Cholesterol, Calc HDL Cholesterol Cholesterol/HDL Ratio Beta-Hydroxybutyrate/Acetoacetate 5.3 H Ur Collection Type Clean Catch Urine Color Lt-Yellow Urine Clarity Clear Urine pH 5.5 Ur Specific [place] 1.036 H Urine Protein 1+ A Urine Glucose (UA) 4+ A Urine Ketones 4+ A Urine Blood Negative Urine Nitrite Negative Urine Bilirubin Negative Urine Urobilinogen (Auto) 2.0 Ur Leukocyte Esterase Negative Urine RBC 2 Urine WBC 2 Ur Squamous Epith Cells 0 Urine Bacteria None Hyaline Casts 3 H 04/28/25 04/28/25 06:15 10:27 WBC 8.2 RBC 4.19 L Hgb 13.0 L D Hct 36.7 L MCV 88 MCH 31.0 MCHC 35.4 RDW Std Deviation 37.2 Plt Count 166 D Neut % (Auto) 55 Lymph % (Auto) 34 [place] % (Auto) 9 Eos % (Auto) 2 Baso % (Auto) 1 Neut # (Auto) 4.5 Lymph # (Auto) 2.8 [place] # (Auto) 0.7 Eos # (Auto) 0.1 Baso # (Auto) 0.1 Immature Gran # (Auto) 0.04 H Absolute Nucleated RBC 0.00 Immature Gran % 1 H Nucleated RBC % 0 VBG pH VBG pCO2 VBG pO2 VBG O2 Sat (Juan) VBG Base Excess Sodium 135 L 137 Potassium 3.4 D 3.2 L Chloride 106 105 Carbon Dioxide 19.3 L 23.4 Anion Gap 10 9 BUN 12 10 Creatinine 1.0 D 0.9 Estim Creat Clear Calc 108.1 118.0 eGFR > 60 > 60 BUN/Creatinine Ratio 12 11 L Glucose 173 H D [address] Glu mg/dL Hemoglobin A1c Calculated Osmolality 273 L 275 Lactic Acid 1.2 1.4 Calcium 8.4 8.2 L Corrected Calcium 8.9 8.7 Phosphorus 2.9 3.4 Magnesium 1.6 1.6 Total Bilirubin 0.5 AST 23 ALT 49 Alkaline Phosphatase 63 D Total Protein 5.5 L Albumin 3.4 L D 3.4 L Globulin 2.1 L Albumin/Globulin Ratio 1.6 Triglycerides 122 Cholesterol 220 H LDL Cholesterol, Calc 163 H HDL Cholesterol 33 L Cholesterol/HDL Ratio 6.7 Beta-Hydroxybutyrate/Acetoacetate Ur Collection Type Urine Color Urine Clarity Urine pH Ur Specific [place] Urine Protein Urine Glucose (UA) Urine Ketones Urine Blood Urine Nitrite Urine Bilirubin Urine Urobilinogen (Auto) Ur Leukocyte Esterase Urine RBC Urine WBC Ur Squamous Epith Cells Urine Bacteria Hyaline Casts ABG Interpretation ABG results: 04/28/25 00:03 VBG pH 7.29 L VBG pCO2 33 L VBG pO2 55 VBG Base Excess -10 L Quality Measures Quality Measures VTE prophylaxis Assessment & Plan Assessment Current Active Medications: Generic Name Dose Route Start Last Admin Trade Name Freq PRN Reason Stop Dose Admin Atorvastatin Calcium 40 mg 04/28/25 21:00 Atorvastatin Calcium 20 Mg Tablet PO 05/28/25 20:59 HS JAYNE Dextrose 25 ml 04/28/25 11:16 Dextrose 50%-Water Inj 50 Ml Syringe IV 05/28/25 11:15 Q15MIN PRN BG 50-70 responsive npo pt Dextrose 50 ml 04/28/25 11:16 Dextrose 50%-Water Inj 50 Ml Syringe IV 05/28/25 11:15 Q15MIN PRN BG <50 OR BG <70 & pt unresponsive Enoxaparin Sodium 40 mg 04/28/25 09:00 04/28/25 09:05 Enoxaparin Sod Inj 40 Mg/0.4 Ml Syringe SC 05/12/25 08:59 40 mg QDAY JAYNE Administration Glucagon 1 mg 04/28/25 11:16 Glucagon Inj 1 Mg Vial IM Q15MIN PRN BG <70, and no IV access Insulin Human Regular 100 unit 100 mls @ 8.618 mls/hr 04/28/25 01:52 04/28/25 12:00 / IV Miscellaneous Supplies IV 05/28/25 01:51 0.025 unit/kg/hr .[id number] PRN 2.155 mls/hr PER PROTOCOL Titration Protocol 0.1 UNIT/KG/HR Insulin Glargine 25 unit 04/29/25 09:00 Insulin Glargine (Lantus) 5 Unit/0.05 Ml (Per 5 Units) SC 05/29/25 08:59 QDAY JAYNE Insulin Human Lispro 6 unit 04/28/25 11:30 04/28/25 12:07 Insulin Lispro (Admelog) 1 Unit/0.01 Ml Unit SC 05/28/25 11:29 Not Given AC JAYNE Insulin Human Lispro 0 unit 04/28/25 11:30 04/28/25 12:07 Insulin Lispro (Admelog) 1 Unit/0.01 Ml Unit SC 05/28/25 11:29 Not Given ACHS JAYNE Protocol Plan Summary: Bryce is a 39-year-old male with a past medical history of hypertension on amiodarone and newly diagnosed type 2 diabetes mellitus who presented to the ED with nausea and vomiting and a glucose of 391 and an anion gap of 21. DKA protocol was started with a 2 L LR bolus in addition to insulin drip at 0.1 units/kg/h with dextrose. Patient was transferred to ICU for continued care where his anion gap improved to 10 the morning of 04/28/2025. His bedside glucose improved to 173 the same morning. Neuro #Cocaine use by history - Per patient he uses cocaine 2 times a week Plan: -volunteer services manager referral -Patient encouraged to stop cocaine Cardiac #History of hypertension Plan: -Consider resuming home dose of amlodipine 5 mg every day Pulmonary - No active problems GI #Hyperlipidemia #Hypercholesterolemia -Triglycerides 195, cholesterol 220, LDL 163, HDL 33 -ASCVD risk of 7.2% Plan: -Start atorvastatin 40 mg twice daily -Patient would benefit with outpatient followup with PCP #Transaminitis -AST 36, ALT 74 Differentials: Suspicion of MASLD setting of DKA Plan: -Hepatitis panel -Outpatient workup Renal #High anion gap metabolic acidosis, resolved Likely in the setting of DKA, patient had elevated lactate -VBG pH of 7.2 Plan: - Anion gap improved from 21 to 10, gap closed twice, continue to monitor Infectious Disease -No active problems. Endocrine #Diabetic ketoacidosis, resolved #Hyperglycemia #T2DM -Patient was recently diagnosed with type 2 diabetes mellitus by his PCP and started on metformin, presented with nausea and vomiting, and a blood glucose in the 300s, he was admitted to the ICU for management of DKA -A1C is 11.1 -The patient transition to solid diet well, stopped insulin drip -Daily insulin requirement was calculated using the patient's body weight Plan: - Start 25 units of insulin glargine daily - Start 6 units insulin lispro with meals - Monitor blood glucose AC - Patient would benefit from optimization of diabetes management outpatient - Diabetic education - Referred to registered dietitian - Hypoglycemia protocol Heme # Normocytic normochromic anemia -Patient was hemoconcentrated on arrival, hemoglobin 16.2 hematocrit 41.8, after fluid resuscitation new hemoglobin 13 hematocrit 37.6 - Follow-up outpatient for anemia follow-up MSK -No active problems Skin -No active problems Urogenital -No active problems Lines/Access: Peripheral IV Diet: Carb consistent low, cardiac Sedation/analgesia: None DVT prophylaxis: Lovenox GI prophylaxis: None CODE STATUS: Full code Disposition: Will downgrade from ICU to Med-Tele. Case discussed with Attending physician Dr. Gil, senior residents Dr. Conde PGY3 [address] Marina PGY2. Bronson Elizabeth PGY1 Disclaimer: This note was dictated by speech recognition. Minor errors in piano professor may be present due to voice recognition software. Attending Provider Attestation/Addendum pt seen and examined with resident team, agree with above. in brief this is a 39yo M newly dx with DM who is admitted with DKA. He was placed on insulin gtt, IVF and dka protocol. On exam he was awake alert and oriented. LCTAB, HRRR, abd s/nt/bs+, no edema, pulses palp. He appears to be doing well and AG is improving. once AG is closed x2 will switch to subq lantus and SSI. DM education provided. Overall improved from arrival case d/w ICU team labs, imaging, records reviewed ~35min required for eval, exam, review, intervention, discussion and formulation of POC for this pt with DKA
--- NOTE | 2025-04-28 14:48 | PC.DIETICIAN ---
Nutrition Education (DKA; A1C=11.1) Patient was educated on dietary management of diabetes (new onset); written material and a FreeStyle Sohail 3 Plus sensor (CGM) were provided. *Consider prescribing a FreeStyle Sohail 3 Plus sensor prior to discharge.
--- NOTE | 2025-04-28 17:00 | ESPR_ITS ---
<Statement entered by Mariluz Medel MD - 05/04/25 14:55> I reviewed above note and agree with findings and plans. I have also personally examined the patient with medicine team and went over assessment and plan with medical team including international broadcast music librarian and resident physician. Documentation for date of: 04/28/25 Subjective Subjective Interval history: CC: weakness Patient is a 39 year old male with a recent diagnosis of diabetes mellitus type 2 and hypertension started on Metformin 500 mg PO BID and Amlodipine. Patient presented to the emergency room with chief complain of body aches and dizziness. Patient noted to experience increased confusion, weakness, polyuria, polyphagia, and fatigue about 1 week ago. Patient followed up with PCP and diabetes diagnosis made after A1c of 12%noted in outpatient setting. Metformin added upon elevated a1c levels. Patient continued to feel fatigued which promoted patient to the emergency room. Denied syncopal events or chest pain. Denied tremors or diaphoresis. Possibleuse of cocaine, possible twice a week. ER: 141/104, pulse 116, respirations 16, temperature 99.1 ?F, oxygen saturation 97% on room air. Labs showed hemoglobin 16.3, sodium 133, potassium 4, carbon dioxide 14.4, anion gap 21, creatinine 1.5, glucose 391, hemoglobin A1c 11.1%, lactic acid 2.2, AST 36, ALT 74, BHB 5.3. Urinalysis showed 4+ urine and ketones and 1+ protein. VBG showed pH 7.29, PCO2 33, PO2 55. EKG showed sinus tachycardia. Chest x-ray was unremarkable. He was given 2 L of IVF in the ED and was admitted to ICU for management of DKA 03/30/2025 Patient is an ICU downgrade onto floors for managment further managment of hyperglycemia to assure proper anion gap cloures, x2. Patinet need to be sent with dialysis and covid. lizbethnt counseled on increased risk of stroke of [place] given past medical history and family history. Counseled on smoking cessation. Liz is a DKA to transition. Exam Vital Signs Temp Pulse Resp BP Pulse Ox O2 Del Method 97.1 F 82 19 139/101 H 96 Room Air 04/28/25 18:30 04/28/25 18:30 04/28/25 18:30 04/28/25 18:30 04/28/25 18:30 04/28/25 18:30 Narrative Exam General Appearance: Alert & Oriented X3, well-nourished patient who is lying in bed in no acute distress HEENT: Skull symmetrical and atraumatic. Conjunctivae pink and moist. Pupils equal, round, reactive to light and accommodation (PERRL). External ear without lesion or discharge. Straight, nares patient, mucosa pink, no discharge. No thyroid nodule appreciated. No cervical lymphadenopathy. Cardio: Normal Rate and Rhythm with S1 and S2 heart sounds. No murmurs or extra heart sounds auscultated. No bruits on carotid auscultation. No peripheral edema or cyanosis. Lungs: Symmetric with good expansion. Chest and back non-tender. Breath sounds vesicular without crackles, wheezing or rhonchi Abdomen: Non-tender, Non-distended, Normal Reactive Bowel Sounds Neuro: Alert, cooperative, oriented to person, place, and time. Speech clear. CN grossly intact. Upper motor strength 5/5 and Lower motor strength 5/5. Sensation intact. Objective Labs 04/28/25 06:15 04/28/25 10:27 Labs: Laboratory Results - last 24 hr 04/27/25 04/28/25 04/28/25 23:58 00:03 02:17 WBC 9.2 RBC 5.26 Hgb 16.3 H Hct 45.9 MCV 87 MCH 31.0 MCHC 35.5 RDW Std Deviation 37.3 Plt Count 229 Neut % (Auto) 65 Lymph % (Auto) 25 [place] % (Auto) 7 Eos % (Auto) 1 Baso % (Auto) 1 Neut # (Auto) 6.0 Lymph # (Auto) 2.3 [place] # (Auto) 0.7 Eos # (Auto) 0.1 Baso # (Auto) 0.1 Immature Gran # (Auto) 0.05 H Absolute Nucleated RBC 0.00 Immature Gran % 1 H Nucleated RBC % 0 VBG pH 7.29 L VBG pCO2 33 L VBG pO2 55 VBG O2 Sat (Juan) 88 L VBG Base Excess -10 L Sodium 133 L Potassium 4.0 Chloride 98 Carbon Dioxide 14.4 L* Anion Gap 21 H BUN 19 Creatinine 1.5 H Estim Creat Clear Calc 70.5 eGFR 60 BUN/Creatinine Ratio 13 [address]ucose [address] Glu mg/dL 272 H Hemoglobin A1c 11.1 H Calculated Osmolality 284 Lactic Acid 2.2 H 2.0 Calcium 9.8 Corrected Calcium 9.8 Phosphorus 4.7 Magnesium 1.9 Total Bilirubin 0.5 AST 36 H ALT 74 H Alkaline Phosphatase 95 Total Protein 7.5 Albumin 4.7 Globulin 2.8 Albumin/Globulin Ratio 1.7 Triglycerides Cholesterol LDL Cholesterol, Calc HDL Cholesterol Cholesterol/HDL Ratio Beta-Hydroxybutyrate/Acetoacetate 5.3 H Ur Collection Type Clean Catch Urine Color Lt-Yellow Urine Clarity Clear Urine pH 5.5 Ur Specific [place] 1.036 H Urine Protein 1+ A Urine Glucose (UA) 4+ A Urine Ketones 4+ A Urine Blood Negative Urine Nitrite Negative Urine Bilirubin Negative Urine Urobilinogen (Auto) 2.0 Ur Leukocyte Esterase Negative Urine RBC 2 Urine WBC 2 Ur Squamous Epith Cells 0 Urine Bacteria None Hyaline Casts 3 H Hepatitis A IgM Ab Hep Bs Antigen Hep B Core IgM Ab Hepatitis C Antibody 04/28/25 04/28/25 04/28/25 06:15 10:06 10:27 WBC 8.2 RBC 4.19 L Hgb 13.0 L D Hct 36.7 L MCV 88 MCH 31.0 MCHC 35.4 RDW Std Deviation 37.2 Plt Count 166 D Neut % (Auto) 55 Lymph % (Auto) 34 [place] % (Auto) 9 Eos % (Auto) 2 Baso % (Auto) 1 Neut # (Auto) 4.5 Lymph # (Auto) 2.8 [place] # (Auto) 0.7 Eos # (Auto) 0.1 Baso # (Auto) 0.1 Immature Gran # (Auto) 0.04 H Absolute Nucleated RBC 0.00 Immature Gran % 1 H Nucleated RBC % 0 VBG pH VBG pCO2 VBG pO2 VBG O2 Sat (Juan) VBG Base Excess Sodium 135 L 137 Potassium 3.4 D 3.2 L Chloride 106 105 Carbon Dioxide 19.3 L 23.4 Anion Gap 10 9 BUN 12 10 Creatinine 1.0 D 0.9 Estim Creat Clear Calc 108.1 118.0 eGFR > 60 > 60 BUN/Creatinine Ratio 12 11 L Glucose [address] H D [address] Glu mg/dL Hemoglobin A1c Calculated Osmolality 273 L 275 Lactic Acid 1.2 1.4 Calcium 8.4 8.2 L Corrected Calcium 8.9 8.7 Phosphorus 2.9 3.4 Magnesium 1.6 1.6 Total Bilirubin 0.5 AST 23 ALT 49 Alkaline Phosphatase 63 D Total Protein 5.5 L Albumin 3.4 L D 3.4 L Globulin 2.1 L Albumin/Globulin Ratio 1.6 Triglycerides 122 Cholesterol 220 H LDL Cholesterol, Calc 163 H HDL Cholesterol 33 L Cholesterol/HDL Ratio 6.7 Beta-Hydroxybutyrate/Acetoacetate Ur Collection Type Urine Color Urine Clarity Urine pH Ur Specific [place] Urine Protein Urine Glucose (UA) Urine Ketones Urine Blood Urine Nitrite Urine Bilirubin Urine Urobilinogen (Auto) Ur Leukocyte Esterase Urine RBC Urine WBC Ur Squamous Epith Cells Urine Bacteria Hyaline Casts Hepatitis A IgM Ab Non Reactive Hep Bs Antigen Non Reactive Hep B Core IgM Ab Non Reactive Hepatitis C Antibody Non Reactive ABG Interpretation ABG results: 04/28/25 00:03 VBG pH 7.29 L VBG pCO2 33 L VBG pO2 55 VBG Base Excess -10 L Quality Measures Quality Measures VTE prophylaxis Assessment & Plan Assessment Current Active Medications: Generic Name Dose Route Start Last Admin Trade Name Freq PRN Reason Stop Dose Admin Atorvastatin Calcium 40 mg 04/28/25 21:00 04/28/25 20:21 Atorvastatin Calcium 20 Mg Tablet PO 05/28/25 20:59 40 mg HS JAYNE Administration Dextrose 25 ml 04/28/25 11:16 Dextrose 50%-Water Inj 50 Ml Syringe IV 05/28/25 11:15 Q15MIN PRN BG 50-70 responsive npo pt Dextrose 50 ml 04/28/25 11:16 Dextrose 50%-Water Inj 50 Ml Syringe IV 05/28/25 11:15 Q15MIN PRN BG <50 OR BG <70 & pt unresponsive Enoxaparin Sodium 40 mg 04/28/25 09:00 04/28/25 09:05 Enoxaparin Sod Inj 40 Mg/0.4 Ml Syringe SC 05/12/25 08:59 40 mg QDAY JAYNE Administration Glucagon 1 mg 04/28/25 11:16 Glucagon Inj 1 Mg Vial IM Q15MIN PRN BG <70, and no IV access Insulin Glargine 25 unit 04/29/25 09:00 Insulin Glargine (Lantus) 5 Unit/0.05 Ml (Per 5 Units) SC 05/29/25 08:59 QDAY JAYNE Insulin Human Lispro 6 unit 04/28/25 11:30 04/28/25 17:24 Insulin Lispro (Admelog) 1 Unit/0.01 Ml Unit SC 05/28/25 11:29 6 unit AC JAYNE Administration Insulin Human Lispro 0 unit 04/28/25 11:30 04/28/25 20:23 Insulin Lispro (Admelog) 1 Unit/0.01 Ml Unit SC 05/28/25 11:29 2 unit ACHS JAYNE Administration Protocol Plan Patient is a 39 year old male with a recent diagnosis of diabetes mellitus type 2 and hypertension started on Metformin 500 mg PO BID and Amlodipine. Patient was admitted overnight for DKA into the ICU and downgraded on to floors on after anion gap closed X 2. #diabetes mellitus type II, insulin dependent #Hyperelidemia. Patient was stared on sub q insulin. Patient resented with average glucose of 391 and A1c of 11.1 Plan -anion gap closed -Long actinig , scheduled lispro6 and sliding scale -calculate insulin needs ovenright -wound cultures pending, negative at 24 ours. #Essential Hypertension Recent diagnosis form PCP that was started on Amlodipine Plan -likely would benefit from ESEQUIEL or ARBs versus Amlodipine upon discharge -Consider protein to urine ration -Follow up with systolic BP readings AM #Normocytic Anemia, likely pseudo Decrease of hgb and hct likley secondary to fluids given. Plan -acute intervention -follow up with hgb /hct #Metabolic Acidosis, high anion gap, resolved. #Lactic Acidosis #LOPEZ - The patient's plan was discussed with attending Dr. Lizy Koch MD PGY2 Internal Medicine
[2025-04-28] MEDS: INSULIN LISPRO (AdmeLOG) 1 UNIT/0.01 ML UNIT 6 UNIT SC (17:24)
[2025-04-28] MEDS: INSULIN LISPRO (AdmeLOG) 1 UNIT/0.01 ML UNIT SC ×2 (17:25→20:23)
--- NOTE | 2025-04-28 18:20 | PC.NURSE ---
PATIENT ALERT AND ORIENTED X4 FAMILY AT BEDSIDE.
[2025-04-28] MEDS: ATORVASTATIN CALCIUM 20 MG TABLET 40 MG PO (20:21)
[2025-04-28 20:47] LABS: Hepatitis A Antibody IgM Non Reactive (Non React); Hepatitis B Core Antibody IgM Non Reactive (Non React); Hepatitis B Surface Antigen Non Reactive (Non React); Hepatitis C Antibody Non Reactive (Non React)
[2025-04-29] VITALS: PULSE 66
[2025-04-29 04:00] VITALS: PULSE 62
[2025-04-29 05:31] LABS: Basophils # (Auto) 0.0 Thou/mm3 (0.0-0.2); Basophils % (Auto) 1 % (0-2.5); Eosinophils # (Auto) 0.2 Thou/mm3 (0.0-0.5); Eosinophils % (Auto) 3 % (0-10); Hematocrit 39.2 % (41.0-53.0); Hemoglobin 14.0 g/dL (13.5-16.0); Immature Granulocytes Auto 0.03 Thou/mm3 (0.00-0.00); Lymphocytes # (Auto) 2.6 Thou/mm3 (1.0-4.8); Lymphocytes % (Auto) 38 % (10-50); Mean Corpuscular HGB Conc 35.7 g/dl (31.0-37.0); Mean Corpuscular Hemoglobin 30.8 pg (25.0-35.0); Mean Corpuscular Volume 86 fL (80-100); Monocytes # (Auto) 0.5 Thou/mm3 (0.0-0.8); Monocytes % (Auto) 8 % (0-12); Neutrophils # (Auto) 3.4 Thou/mm3 (1.8-7.7); Neutrophils % (Auto) 50 % (37-80); Nucleated Red Blood Cell # 0.00 Thou/mm3 (0.00-0.00); Nucleated Red Blood Cell % 0 /100 WBC (0); Platelet Count 181 Thou/mm3 (140-440); RDW Standard Deviation 36.7 fL (35.1-43.9); Red Blood Count 4.55 Miln/mm3 (4.50-5.90); White Blood Count 6.8 Thou/mm3 (3.8-10.6)
[2025-04-29 05:59] LABS: Alanine Aminotransferase 62 U/L (10-49); Albumin, Serum 3.7 gm/dL (3.5-5.0); Albumin/Globulin Ratio 1.7 (1.2-2.2); Alkaline Phosphatase 64 U/L (46-116); Anion Gap 13 (7-16); Aspartate Amino Transferase 32 U/L (0-34); BUN/Creatinine Ratio 10 Ratio (12-20); Bilirubin,Total 0.6 mg/dL (0.3-1.2); Blood Urea Nitrogen 10 mg/dL (9-23); Calcium 8.9 mg/dL (8.3-10.6); Calcium (Corrected) 9.1 mg/dL (8.5-10.1); Carbon Dioxide 26.6 mMol/L (20.0-31.0); Chloride 101 mMol/L (98-107); Creatinine (Component) 1.0 mg/dL (0.6-1.3); Estimated Creatinine Clearance 106.2 mL/min (>60); Globulin 2.2 gm/dL (2.3-3.5); Glucose 203 mg/dL (74-106); Magnesium 1.8 mg/dL (1.6-2.6); Osmolality,Calculated 286 (275-295); Phosphorous 3.3 mg/dL (2.4-5.1); Potassium 3.7 mMol/L (3.4-5.1); Sodium 141 mMol/L (136-145); Total Protein 5.9 gm/dL (5.7-8.2); eGFR > 60 See Note
[2025-04-29] MEDS: INSULIN LISPRO (AdmeLOG) 1 UNIT/0.01 ML UNIT 6 UNIT SC (07:39)
[2025-04-29] MEDS: INSULIN LISPRO (AdmeLOG) 1 UNIT/0.01 ML UNIT SC ×2 (07:39→11:24)
[2025-04-29 08:00] VITALS: BP 115/80; PULSE 67; RESP 18; TEMP 36.2; O2SAT 98
[2025-04-29] MEDS: ENOXAPARIN SOD INJ 40 MG/0.4 ML SYRINGE SC (09:00)
[2025-04-29] MEDS: INSULIN GLARGINE (Lantus) 5 UNIT/0.05 ML (PER 5 UNITS) 25 UNIT SC (09:00)
[2025-04-29 09:43] VITALS: PULSE 74
[2025-04-29] MEDS: INSULIN GLARGINE (Lantus) 5 UNIT/0.05 ML (PER 5 UNITS) SC (10:00)
[2025-04-29] MEDS: INSULIN LISPRO (AdmeLOG) 1 UNIT/0.01 ML UNIT 8 UNIT SC (11:24)
[2025-04-29 12:00] VITALS: BP 127/87; PULSE 72; RESP 18; TEMP 36.2; O2SAT 97
--- NOTE | 2025-04-29 12:40 | ESDS_ITS ---
<Statement entered by Mariluz Medel MD - 05/06/25 11:43> I reviewed above note and agree with findings and plans. I have also personally examined the patient with medicine team and went over assessment and plan with medical team including rn internal medicine and resident physician. Planned Discharge Date 04/29/25 DS: Providers Provider Date of admission: 04/28/25 01:49 Primary care physician: Sage Valentin MD Admitting Provider: Jeffrey Bruno MD Attending Provider on Admission: Sofia Gil MD Consults: 04/28/25 01:52 Referral Registered Dietitian Routine Comment: Attending Provider on DC: RESIDENT Simon Discharging Provider: RESIDENT Simon DS: Diagnosis Problem List Completed Was Problem List Reviewed/Reconciled?: Yes Hospital Course Hospital Course Hospital course: Summary: Patient is a 39 year old male with a past medical history of diabetes mellitus type 2 and hypertension started on Metformin 500 mg PO BID and Amlodipine. Patient was admitted overnight for DKA into the ICU and downgraded on to floors on after anion gap closed X 2. ER course: In ED, patient had nausea and vomiting with glucose level was 291 and anion gap of 21. DKA protocol was started with a 2 L LR bolus in addition to insulin drip at 0.1 units/kg/h with dextrose. Patient was transferred to ICU for continued care where his anion gap improved to 10 the morning of 04/28/2025. Hospital Course: He was later downgraded to floors. Patient transitioned to solid diet and subcutaneous insulin. He started with 25 units of insulin glargine daily and 6 units of insulin lispro with meals #Metabolic Acidosis, high anion gap, resolved. #Lactic Acidosis #LOPEZ #diabetes mellitus type II, insulin dependent #Hyperelidemia. #Essential Hypertension #Normocytic Anemia, likely pseudo Instructions: You have been started on insulin Lantus 30 units once daily before breakfast. Also new medication, Jardiance has been added in place of metformin. Please discontinue metformin. Follow up with Primary care physician with labs within 3-5 days of discharge. If symptoms persist or worsen, return to the Emergency Department. You can follow up with Dr. Campos at the [facility] to establish primary care, if you do not have a primary physician. you may need to call the office to setup appointment. [facility] [address] [place] [address] Safe to discharge to home Time Spent with Patient Time attestation: Total time spent providing and/or coordinating discharge services: At least 30 minutes of care coordination Time spent: Greater than 30 minutes Exam Vital Signs Temp Pulse Resp BP Pulse Ox O2 Del Method 97.1 F 72 18 127/87 H 97 Room Air 04/29/25 12:04/29/25 12:04/29/25 12:04/29/25 12:04/29/25 12:04/29/25 12:00 Narrative Exam General Appearance: Alert & Oriented X3, well-nourished patient who is lying in bed in no acute distress HEENT: Skull symmetrical and atraumatic. Conjunctivae pink and moist. Pupils equal, round, reactive to light and accommodation (PERRL). External ear without lesion or discharge. Straight, nares patient, mucosa pink, no discharge. No thyroid nodule appreciated. No cervical lymphadenopathy. Cardio: Normal Rate and Rhythm with S1 and S2 heart sounds. No murmurs or extra heart sounds auscultated. No bruits on carotid auscultation. No peripheral edema or cyanosis. Lungs: Symmetric with good expansion. Chest and back non-tender. Breath sounds vesicular without crackles, wheezing or rhonchi Abdomen: Non-tender, Non-distended, Normal Reactive Bowel Sounds Neuro: Alert, cooperative, oriented to person, place, and time. Speech clear. CN grossly intact. Upper motor strength 5/5 and Lower motor strength 5/5. Sensation intact. Discharge Plan Plan Patient Disposition: HOME (Self Care) Patient condition on transfer: Stable Care Plan Goals: You have been started on insulin Lantus 30 units once daily before breakfast. Also new medication, Jardiance has been added in place of metformin. Please discontinue metformin. Follow up with Primary care physician with labs within 3-5 days of discharge. If symptoms persist or worsen, return to the Emergency Department. You can follow up with Dr. Campos at the [facility] to establish primary care, if you do not have a primary physician. you may need to call the office to setup appointment. [facility] [address] [place] [address] Prescriptions/Referrals Prescriptions/Med Rec: New insulin glargine 100 unit/mL (3 mL) insulin pen 30 unit subcut QAM Qty: 15 1RF Jardiance 10 mg tablet 10 mg PO QDAY Qty: 14 0RF (DME) blood ketone glucose monitor Kit See Rx Instructions .Route Qty: 1 0RF Rx Instructions: As directed (DME) Blood Glucose Test Strip See Rx Instructions .Route Qty: 50 0RF Rx Instructions: As directed (DME) lancets [2-In-1 Lancet Device] 30 gauge misc See Rx Instructions .Route Qty: 100 0RF Rx Instructions: As directed Continued amlodipine 5 mg tablet 5 mg PO DAILY Discontinued metformin 500 mg tablet 500 mg PO BID Referrals: Sage Valentin MD [Primary Care Provider] - Patient/Caregiver Discharge Instructions Education Materials: Diabetes and Heart Disease, Diabetes: Caring for Your Body Print Language: Telugu Stand Alone Forms: Sharon Award Info., Patient Portal Info Letter Discharge Order Discharge Orders: Discharge (Routine); Ordered 04/29/25 Ordered By: Yuki Moraes Quality Discharge Quality Measures VTE prophylaxis
--- NOTE | 2025-04-29 16:34 | PC.SS ---
Bryce Krishnan is 39 year old male admitted to [facility] for DKA. SS conducted bedside contact with the patient to complete initial assessment and to discuss discharge planning.? SW used all precautionary measures to complete initial. Role and reason for the contact was explained to Bryce. Pt is alert and oriented times 4. Patient confirmed demographic information address on facesheet is accurate. Pt lives with significant other. Patient identifies Lilly Foy, significant other, [phone] as his surrogate decision maker. Pt states prior to hospitalization he is independent on all ADLs, does not need DME nor O2. Pt recently diagnosed with diabetes and processing the new lifestyle. Pt confirmed no history of mental health or substance abuse. Pts PCP is Debbie Valentin. Pharmacy of choice is [facility]. Discharge options discussed and the pt will return home. Pt was not receptive to [facility]. Family will provide transportation upon DC. No further intervention required at this time, social sciences lecturer would be available to address any further concerns. DC Plan: Home Contact: Lilly Foy, significant other, [phone] Address: Confirmed on face sheet PCP: Debbie Valentin
== END 2025-04-29 12:32 | disposition home or self-care (01) | DRG 638 ==
LOC: SERX 04-28 01:55 → SERHOLD 04-28 02:30 → S2SX 04-28 05:37 → S3SX 04-28 18:11
PROVIDERS: Student in an Organized Health Care Education/Training Program; Admitting Provider Student in an Organized Health Care Education/Training Program; Emergency Provider Student in an Organized Health Care Education/Training Program; PCP Internal Medicine; Visit Provider Internal Medicine
DX: E11.10 Type 2 diabetes mellitus with ketoacidosis without coma (principal); N17.9 Acute kidney failure, unspecified; I10 Essential (primary) hypertension; E78.00 Pure hypercholesterolemia, unspecified; D64.9 Anemia, unspecified; Z79.4 Long term (current) use of insulin; Z79.84 Long term (current) use of oral hypoglycemic drugs; Z79.899 Other long term (current) drug therapy
CPT/HCPCS: 36415; 71045; 80048; 80053; 80061; 80069; 80074; 81001; 82010; 82803; 83036; 83605; 83735; 84100; 85025; 87040; 87081; 93005; 96361; 96365; 96366; 99285; J1650; J1815; J3480; J7030; J7120; J7121; A9270

== ENCOUNTER → 2025-07-04 | Outpatient (CLI) | payer BC, SELFPAY ==
[2025-07-04 08:15] LABS: Collection Type, Urine Clean Catch
[2025-07-04 08:45] LABS: Bacteria,Urine Rare; Bilirubin,Urine Negative (Negative); Blood,Urine Negative (Negative); Clarity,Urine Clear (Clear/Hazy); Color,Urine Lt-Yellow (Lt Yel-Yel); Glucose, Urine 4+ (Negative); Ketones,Urine Negative (Negative); Leukocyte Esterase,Urine Negative (Negative); Nitrite,Urine Negative (Negative); PH,Urine 6.0 (5.0-7.0); Protein,Urine Negative (Neg - Trace); RBC,Urine 2 /hpf (0-3); Specific Gravity,Urine 1.044 (1.001-1.035); Squamous Epithelial Cell,Urine < 1 /hpf (0-5); Urobilinogen,Urine Negative mg/dL (0.0-1.0); WBC,Urine 6 /hpf (0-5)
[2025-07-04 08:52] LABS: Glucose Estimated Average 166 mg/dL (80-131); Hemoglobin A1C 7.4 % Hgb (4.8-6.0)
[2025-07-04 08:57] LABS: Basophils # (Auto) 0.1 Thou/mm3 (0.0-0.2); Basophils % (Auto) 1 % (0-2.5); Eosinophils # (Auto) 0.2 Thou/mm3 (0.0-0.5); Eosinophils % (Auto) 2 % (0-10); Hematocrit 47.0 % (41.0-53.0); Hemoglobin 16.1 g/dL (13.5-16.0); Immature Granulocytes Auto 0.02 Thou/mm3 (0.00-0.00); Lymphocytes # (Auto) 2.6 Thou/mm3 (1.0-4.8); Lymphocytes % (Auto) 35 % (10-50); Mean Corpuscular HGB Conc 34.3 g/dl (31.0-37.0); Mean Corpuscular Hemoglobin 30.6 pg (25.0-35.0); Mean Corpuscular Volume 89 fL (80-100); Monocytes # (Auto) 0.6 Thou/mm3 (0.0-0.8); Monocytes % (Auto) 8 % (0-12); Neutrophils # (Auto) 4.0 Thou/mm3 (1.8-7.7); Neutrophils % (Auto) 54 % (37-80); Nucleated Red Blood Cell # 0.00 Thou/mm3 (0.00-0.00); Nucleated Red Blood Cell % 0 /100 WBC (0); Platelet Count 289 Thou/mm3 (140-440); RDW Standard Deviation 39.6 fL (35.1-43.9); Red Blood Count 5.27 Miln/mm3 (4.50-5.90); White Blood Count 7.4 Thou/mm3 (3.8-10.6)
[2025-07-04 08:58] LABS: Vitamin B12 407 pg/mL (211-911); Vitamin D 25 Hydroxy Total 19.6 ng/mL (7.3-40.2)
[2025-07-04 09:03] LABS: Creatinine MALB Rnd Ur 183 mg/dL (30-125); Microalbumin Creat Ratio 4 mg/gCrea (<30); Microalbumin, Random Urine 7 mg/L (0-300)
[2025-07-04 09:03] LABS: Prostate Specific Antigen 0.38 ng/mL (0-4.00)
[2025-07-04 09:06] LABS: Alanine Aminotransferase 46 U/L (10-49); Albumin, Serum 4.4 gm/dL (3.5-5.0); Albumin/Globulin Ratio 1.8 (1.2-2.2); Alkaline Phosphatase 82 U/L (46-116); Anion Gap 11 (7-16); Aspartate Amino Transferase 20 U/L (0-34); BUN/Creatinine Ratio 20 Ratio (12-20); Bilirubin,Total 0.6 mg/dL (0.3-1.2); Blood Urea Nitrogen 22 mg/dL (9-23); Calcium 10.1 mg/dL (8.3-10.6); Calcium (Corrected) 10.1 mg/dL (8.5-10.1); Carbon Dioxide 27.9 mMol/L (20.0-31.0); Cardiac Risk Estimate 3.5 RATIO (4.0-6.7); Chloride 102 mMol/L (98-107); Cholesterol 176 mg/dL (132-200); Creatinine (Component) 1.1 mg/dL (0.6-1.3); Globulin 2.4 gm/dL (2.3-3.5); Glucose 105 mg/dL (74-106); HDL Cholesterol 51 mg/dL (40-60); LDL Cholesterol,Calculated 84 mg/dL (0-130); Osmolality,Calculated 284 (275-295); Potassium 3.9 mMol/L (3.4-5.1); Sodium 141 mMol/L (136-145); Thyroid Stimulating Hormone 2.92 uIU/mL (0.55-4.78); Total Protein 6.8 gm/dL (5.7-8.2); Triglycerides 205 mg/dL (30-150); Uric Acid 5.6 mg/dL (3.7-9.2); eGFR > 60 See Note
== END | disposition home or self-care (01) ==
LOC: COPL 07:43
PROVIDERS: PCP Internal Medicine; Referring Provider Internal Medicine; Visit Provider Internal Medicine
DX: Z00.00 Encounter for general adult medical examination without abnormal findings (principal); I10 Essential (primary) hypertension; E78.5 Hyperlipidemia, unspecified; E11.9 Type 2 diabetes mellitus without complications
CPT/HCPCS: 36415; 80053; 80061; 81001; 82043; 82306; 82570; 82607; 83036; 84153; 84443; 84550; 85025

== ENCOUNTER 2025-09-30 23:02 | Emergency (ER) | payer BC, SELFPAY ==
[2025-09-30 23:04] VITALS: BMI 28.8
[2025-09-30 23:15] VITALS: BP 163/99; PULSE 103; RESP 18; TEMP 36.9; O2SAT 96
--- NOTE | 2025-09-30 23:26 | PC.NURSE ---
PATIENT AND COMPANIAN WERE SEEN LEAVING ED LOBBY AT THIS TIME AND ENTERING PRIVATE VEHICLE. PER SECURITY VEHICLE WAS SEEN LEAVING PARKING LOT.
--- NOTE | 2025-09-30 23:36 | PD.EDRME ---
Rapid Medical Screening Exam RME Arrival date/time: 09/30/25 23:02 This is a case of 40-year-old male who came into the emergency room due to facial injury patient states that he might of broke his nose patient states that he fell and hit his face on the floor no loss of conscious Chief Complaint: Fall Time Seen by Provider: 09/30/25 23:07 Vital signs: Vital Signs Temperature 98.4 F 09/30/25 23:15 Pulse Rate 103 H 09/30/25 23:15 Respiratory Rate 18 09/30/25 23:15 Blood Pressure 163/99 H 09/30/25 23:15 Pulse Oximetry (%) 96 09/30/25 23:15 Oxygen Delivery Method Room Air 09/30/25 23:15 Exam: Moderate tenderness and small laceration on the nasal bridge no crepitation no deformity neurological exam is normal awake alert oriented x 4 no focal deficit GCS 15/15 steady gait Clinical Impression: Facial injury nasal contusion
== END 2025-09-30 23:27 | disposition left against medical advice (07) ==
PROVIDERS: Emergency Provider Emergency Medicine
DX: S09.93XA Unspecified injury of face, initial encounter (principal); W18.30XA Fall on same level, unspecified, initial encounter; Z53.29 Procedure and treatment not carried out because of patient's decision for other reasons
CPT/HCPCS: 99281